=== PATIENT | male | born 1985 | race Caucasian/White ===

== ENCOUNTER 2021-09-15 08:00 | Outpatient (CLI) | payer OTHER | END 2021-09-15 23:59 | LOC: LAB.N 08:00 | PROVIDERS: ATTEND Physician Assistant Medical | DX: U07.1 COVID-19 (principal) ==

== ENCOUNTER 2022-04-19 18:43 | Emergency (ER) | payer OTHER ==
[2022-04-19] MEDS ORDERED: SODIUM CHLORIDE 0.9% 1,000 ML IV STA (19:06)
[2022-04-19] MEDS ORDERED: KETOROLAC 30 MG/ML VIAL IVP STA (19:06)
[2022-04-19 19:31] LABS: BASOPHILS % (AUTO) 0.4 %; EOSINOPHILS # (AUTO) 0.1 10^3/uL (0.0-0.7); EOSINOPHILS % (AUTO) 0.7 %; HCT - HEMATOCRIT 46.5 % (42.0-52.0); HGB - HEMOGLOBIN 15.5 g/dL (14.0-18.0); LYMPHOCYTES # (AUTO) 0.9 10^3/uL (1.5-3.5); LYMPHOCYTES % (AUTO) 10.3 %; MEAN CORPUSCULAR HEMOGLOBIN 27.4 pg (27.0-31.0); MEAN CORPUSCULAR HGB CONC 33.3 g/dL (32.0-36.0); MEAN CORPUSCULAR VOLUME 82.2 fL (80.0-94.0); MEAN PLATELET VOLUME 9.4 fL (7.4-11.4); MONOCYTES # (AUTO) 0.8 10^3/uL (0.0-1.0); MONOCYTES % (AUTO) 9.5 %; NEUTROPHILS # (AUTO) 6.6 10^3/uL (1.5-6.6); NEUTROPHILS % (AUTO) 78.7 %; PLT - PLATELET COUNT 196 10^3/uL (130-450); RED BLOOD COUNT 5.66 10^6/uL (4.70-6.10); RED CELL DISTRIBUTION WIDTH 13.6 % (12.0-15.0); WHITE BLOOD COUNT 8.4 x10^3/uL (4.8-10.8)
[2022-04-19 19:42] LABS: ALBUMIN 4.5 g/dL (3.2-5.5); ALBUMIN/GLOBULIN RATIO 1.5 (1.0-2.2); BILIRUBIN,TOTAL 0.4 mg/dL (0.2-1.0); CALCIUM 9.9 mg/dL (8.5-10.3); CREATININE 0.9 mg/dL (0.6-1.2); POTASSIUM 4.2 mmol/L (3.5-5.0); TOTAL PROTEIN 7.6 g/dL (6.7-8.2)
[2022-04-19 20:24] LABS: CORONAVIRUS 229E-RESP PCR NOT DETECTED; CORONAVIRUS HKU1-RESP PCR NOT DETECTED; CORONAVIRUS NL63-RESP PCR NOT DETECTED; CORONAVIRUS OC43-RESP PCR NOT DETECTED; HUMAN METAPNEUMOVIRUS NOT DETECTED; RHINOVIRUS/ENTEROVIRUS DETECTED; SARS-CoV-2 -RESP PCR PANEL NOT DETECTED
[2022-04-19 20:25] LABS: B. PARAPERTUSSIS- RESP PCR PAN NOT DETECTED; B. PERTUSSIS- RESP PCR PANEL NOT DETECTED; C. PNEUMONIAE- RESP PCR PANEL NOT DETECTED; INFLUENZA A- RESP PCR PANEL NOT DETECTED; INFLUENZA B - RESP PCR PANEL NOT DETECTED; M. PNEUMONIAE- RESP PCR PANEL NOT DETECTED; PARAINFLUENZA VIRUS 1 NOT DETECTED; PARAINFLUENZA VIRUS 2 NOT DETECTED; PARAINFLUENZA VIRUS 3 NOT DETECTED; PARAINFLUENZA VIRUS 4 NOT DETECTED; RSV- RESP PCR PANEL NOT DETECTED
--- NOTE | 2022-04-19 20:26 | XRAY Report ---
PROCEDURE: Chest 1 View X-Ray INDICATIONS: cough TECHNIQUE: One view of the chest was acquired. COMPARISON: None FINDINGS: Surgical changes and devices: None. Lungs and pleura: No pleural effusions or pneumothorax. Lungs are clear. Mediastinum: Mediastinal contours appear normal. Heart size is normal. Bones and chest wall: No suspicious bony lesions. Overlying soft tissues appear unremarkable. IMPRESSION: Chest without acute cardiopulmonary abnormalities or focal airspace disease. Reviewed by: Dov Key MD on 04/19/2022 8:24 PM PDT Approved by: Dov Key MD on 04/19/2022 8:24 PM PDT Station ID: [id number]
--- NOTE | 2022-04-19 20:30 | CT Report ---
PROCEDURE: Abdomen/Pelvis WO INDICATIONS: L flank to LLQ pain TECHNIQUE: Noncontrast 5 mm thick sections acquired from the diaphragms to the symphysis. 5 mm coronal and sagi ttal reformats were then performed. For radiation dose reduction, the following was used: automated exposure control, adjustment of mA and/or kV according to patient size. COMPARISON: None. FINDINGS: Image quality: Degraded by patient motion artifact. ABDOMEN: Lung bases: Lung bases appear clear. Heart size is normal. Solid organs: Liver and spleen are normal in size. Gallbladder is unremarkable Pancreas is normal in contours. No adrenal nodules. Kidneys are normal in size, without hydronephrosis or nephrolithia sis. Bilateral ureters are normal in course and caliber. No ureteral stones. No perinephric or periu reteral stranding. Peritoneum and bowel: Unenhanced bowel loops demonstrate normal wall thickness and caliber. Normal a ppearance of the appendix. No free fluid or air. Nodes and vessels: No retroperitoneal or mesenteric adenopathy by size criteria. Aorta and inferior vena cava are normal in caliber. Miscellaneous: Very small fat-containing umbilical hernia without acute inflammation. PELVIS: Genitourinary: Bladder wall thickness is normal. No urinary bladder stone seen. Miscellaneous: No inguinal hernias or adenopathy. Bones: No suspicious bony lesions. No acute vertebral body compression fractures. IMPRESSION: CT abdomen and pelvis without acute abnormalities. Specifically, no evidence for urolithiasis or obst ructive uropathy. The appendix is normal. Reviewed by: Dov Key MD on 04/19/2022 8:29 PM PDT Approved by: Dov Key MD on 04/19/2022 8:29 PM PDT Station ID: [id number]
[2022-04-19] MEDS ORDERED: ACETAMINOPHEN 500 MG TABLET PO STA (20:37)
[2022-04-19] MEDS ORDERED: diphenhydrAMINE INJ 50 MG/ML VIAL IVP STA (20:37)
[2022-04-19] MEDS ORDERED: METOCLOPRAMIDE 10 MG/2 ML VIAL IVP STA (20:37)
--- NOTE | 2022-04-19 20:52 | ED Physician Documentation ---
PD HPI URI - Stated complaint Stated Complaint: FEVER,HEADACHE,ABD PX - Chief complaint Chief Complaint: Resp - History obtained from History obtained from: Patient - Additional information Additional information: Patient is a 37-year-old male with no significant past medical history presenting for evaluation of fever, nonproductive cough, body aches that of been present since last night. He additionally reports having a throbbing frontal headache that has been present since last night. He has tried TheraFlu, ibuprofen and acetaminophen without improvement in his symptoms. He is a child that was ill last week and his was ill with URI symptoms over the weekend. His was checked for COVID and it was negative. Reports having some left flank pain as well as left lower quadrant abdominal pain. He is vaccinated for COVID. He has not taken a COVID test at home. He did try to be seen at [facility] today but was not able To be seen. Review of Systems Constitutional: reports: Fever Nose: reports: Congestion Throat: denies: Sore throat Cardiac: denies: Chest pain / pressure Respiratory: reports: Cough. denies: Dyspnea GI: reports: Abdominal Pain. denies: Nausea, Vomiting : denies: Dysuria Musculoskeletal: reports: Back pain. denies: Neck pain Neurologic: reports: Headache. denies: Syncope PD PAST MEDICAL HISTORY - Allergies Allergies/Adverse Reactions: Allergies Allergy/AdvReac Type Severity Reaction Status Date / Time No Known Drug Allergies Allergy Verified 04/19/22 18:53 PD ED PE NORMAL - General General: Alert and oriented X 3, No acute distress, Well developed/nourished - HEENT HEENT: Atraumatic, Moist mucous membranes - Neck Neck: Supple, no meningeal sign, No bony TTP - Cardiac Cardiac: No murmur, Strong equal pulses, Other (Tachycardic, regular rhythm) - Respiratory Respiratory: No respiratory distress, Clear bilaterally - Abdomen Abdomen: Normal bowel sounds, Soft, Non tender, Non distended - Derm Derm: Warm and dry - Extremities Extremities: No edema - Neuro Neuro: Alert and oriented X 3, 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, No motor deficit, No sensory deficit, Normal speech, Other (Normal gait) Results - Vitals Vitals: Vital Signs - 24 hr 04/19/22 04/19/22 04/19/22 18:48 18:53 20:01 Temperature 37.7 C Heart Rate 104 H 107 H 108 H Respiratory 16 16 18 Rate Blood Pressure 145/95 H 149/83 H 143/84 H O2 Saturation 98 99 95 04/19/22 04/19/22 21:00 21:27 Temperature 37 C 37 C Heart Rate 93 91 Respiratory 20 18 Rate Blood Pressure 137/56 H 133/68 H O2 Saturation 95 96 Oxygen O2 Source Room air - Labs Labs: Laboratory Tests 04/19/22 04/19/22 04/19/22 19:18 19:18 19:18 WBC 8.4 RBC 5.66 Hgb 15.5 Hct 46.5 MCV 82.2 MCH 27.4 MCHC 33.3 RDW 13.6 Plt Count 196 MPV 9.4 Neut # (Auto) 6.6 Lymph # (Auto) 0.9 L Cassia # (Auto) 0.8 Eos # (Auto) 0.1 Baso # (Auto) 0.0 Absolute Nucleated RBC 0.00 Nucleated RBC % 0.0 Sodium 135 Potassium 4.2 Chloride 97 L Carbon Dioxide 29 Anion Gap 9.0 BUN 10 Creatinine 0.9 Estimated GFR (MDRD) 95 Glucose 110 H Lactic Acid 1.6 Calcium 9.9 Total Bilirubin 0.4 AST 31 ALT 63 H Alkaline Phosphatase 60 Total Protein 7.6 Albumin 4.5 Globulin 3.1 Albumin/Globulin Ratio 1.5 Nasal Adenovirus (PCR) Nasal B. parapertussis DNA (PCR) Nasal Coronavir 229E PCR Nasal Coronavir HKU1 PCR Nasal Coronavir NL63 PCR Nasal Coronavir OC43 PCR Nasal Enterovir/Rhinovir PCR Nasal Influenza B PCR Nasal Influenza A PCR Nasal Parainfluen 1 PCR Nasal Parainfluen 2 PCR Nasal Parainfluen 3 PCR Nasal Parainfluen 4 PCR Nasal RSV (PCR) Nasal B.pertussis DNA PCR Nasal C.pneumoniae (PCR) Pema Human Metapneumo PCR Nasal M.pneumoniae (PCR) Nasal SARS-CoV-2 (PCR) 04/19/22 19:18 WBC RBC Hgb Hct MCV MCH MCHC RDW Plt Count MPV Neut # (Auto) Lymph # (Auto) Cassia # (Auto) Eos # (Auto) Baso # (Auto) Absolute Nucleated RBC Nucleated RBC % Sodium Potassium Chloride Carbon Dioxide Anion Gap BUN Creatinine Estimated GFR (MDRD) Glucose Lactic Acid Calcium Total Bilirubin AST ALT Alkaline Phosphatase Total Protein Albumin Globulin Albumin/Globulin Ratio Nasal Adenovirus (PCR) NOT DETECTED Nasal B. parapertussis DNA (PCR) NOT DETECTED Nasal Coronavir 229E PCR NOT DETECTED Nasal Coronavir HKU1 PCR NOT DETECTED Nasal Coronavir NL63 PCR NOT DETECTED Nasal Coronavir OC43 PCR NOT DETECTED Nasal Enterovir/Rhinovir PCR DETECTED A Nasal Influenza B PCR NOT DETECTED Nasal Influenza A PCR NOT DETECTED Nasal Parainfluen 1 PCR NOT DETECTED Nasal Parainfluen 2 PCR NOT DETECTED Nasal Parainfluen 3 PCR NOT DETECTED Nasal Parainfluen 4 PCR NOT DETECTED Nasal RSV (PCR) NOT DETECTED Nasal B.pertussis DNA PCR NOT DETECTED Nasal C.pneumoniae (PCR) NOT DETECTED Pema Human Metapneumo PCR NOT DETECTED Nasal M.pneumoniae (PCR) NOT DETECTED Nasal SARS-CoV-2 (PCR) NOT DETECTED PD MEDICAL DECISION MAKING - ED course Complexity details: reviewed results, re-evaluated patient, d/w patient ED course: Patient evaluated for headache, fever, abdominal pain and nonproductive cough. Slightly tachycardic but otherwise reassuring vital signs. Labs are reassuring. Abdominal exam is benign. Chest x-ray is clear and CT scan of the abdomen pelvis is negative for stone or other acute intra-abdominal process. Patient feeling better with migraine cocktail medications. His neuro exam is normal. He has no signs of meningitis. Reviewed findings of his respiratory panel and he is comfortable with continuing with supportive care. Patient is ambulatory at discharge. Departure - Departure Disposition: 01 Home, Self Care Clinical Impression: Enterovirus infection Tension type headache Qualifiers: Headache chronicity pattern: acute headache Intractability: not intractable Qualified Code(s): G44.209 - Tension-type headache, unspecified, not intractable Condition: Stable Instructions: ED Headache Migraine, ED Viral Syndrome Follow-Up: [facility] ayshamica Murillo [Provider Group] Comments: You were evaluated for a fever, body aches, abdominal pain.Your labs were overall reassuring and your chest x-ray was clear. CT scan of your abdomen pelvis did not show any significant abnormalities. A respiratory panel was sent and you are negative for COVID and influenza but positive for enterovirus/rhinovirus Which are viruses that cause the common cold. Please continue with making sure you stay hydrated with plenty of fluids and using acetaminophen or ibuprofen as needed for body aches and fevers.If you have any worsening symptoms please consider return to the ER. Forms: Activity restrictions Discharge Date/Time: 04/19/22 21:27
[2022-04-19 21:29] VITALS: BP 133/68
== END 2022-04-19 21:27 | disposition home or self-care (01) ==
LOC: ED 18:43
DX: B34.1 Enterovirus infection, unspecified (principal); G44.209 Tension-type headache, unspecified, not intractable; Z20.822 Contact with and (suspected) exposure to COVID-19
CPT/HCPCS: 36415; 71045; 74176; 80053; 83605; 85025; 87633; 96361; 96374; 96375; 99282; 99284; A9270; J1200; J2765